=== PATIENT | female | born 1980 | race Caucasian/White ===

== ENCOUNTER 2017-01-29 09:12 | Emergency (ER) ==
[2017-01-29 09:25] VITALS: BP 167/111; TEMP 98.1; BMI 27.3
[2017-01-29] MEDS ORDERED: BACTROBAN TP STA (09:32)
[2017-01-29] MEDS ORDERED: TENIVAC IM ONE (09:33)
[2017-01-29] MEDS ORDERED: ANCEF IM STA (09:33)
--- NOTE | 2017-01-29 09:46 | ED.PDOC ---
General ED Provider: Dr. EPHRAIM AGUILAR-ER Chief Complaint: Bite Stated Complaint: was bitten by a dog last nite--caused lac on the thumb-- Time Seen by Physician: 09:15 Mode of Arrival: Walk-In Information Source: Patient Exam Limitations: No limitations Primary Care Provider: EPHRAIM AGUILAR Nursing and Triage Documentation Reviewed and Agree: Yes Skin Complaint Exam - Laceration/Abrasion/Hand Complaint/Exam Location of Injury: Right, Digit #1 Mechanism of Injury: Laceration, Puncture Onset/Duration: over [id number] agao Symptoms Are: Still present Initial Severity: Mild Current Severity: Mild Aggravating: Movement Alleviating: Compression Associated Signs and Symptoms: Denies: Fever, Chills, Erythema, Numbness, Tingling Differential Diagnoses: Bite Injury Review of Systems - Review Of Systems Constitutional: Reports: No symptoms Eyes: Reports: No symptoms Ears, Nose, Mouth, Throat: Reports: No symptoms Respiratory: Reports: No symptoms Cardiac: Reports: No symptoms GI: Reports: No symptoms : Reports: No symptoms Musculoskeletal: Reports: No symptoms Skin: Reports: Other Neurological: Reports: No symptoms Endocrine: Reports: No symptoms Hematologic/Lymphatic: Reports: No symptoms All Other Systems: Reviewed and Negative Past Medical History - Past Medical History Endocrine: Reports: Unknown Cardiovascular: Reports: Hypertension Respiratory: Reports: Other Hematological: Reports: None Gastrointestinal: Reports: None Genitourinary: Reports: None Neuro/Psych: Reports: None Musculoskeletal: Reports: None Cancer: Reports: None Last Menstrual Period: 2 weeks ago - Surgical History General Surgical History: Reports: Unknown - Family History Family History: Reports: Unknown - Social History Smoking Status: Current some day smoker Hx Substance Use: No Alcohol Screening: Occasionally Lives: With family - Immunizations Tetanus Shot up to Date: Yes (3 yrs) Physical Exam - Physical Exam Appearance: Well-appearing, No pain distress, Well-nourished Pain Distress: Mild Eyes: CHRISTOPHER, EOMI, Conjunctiva clear ENT: Ears normal, Nose normal, Oropharynx normal Neck: Supple Respiratory: Airway patent, Breath sounds clear, Breath sounds equal, Respirations nonlabored Cardiovascular: RRR, Pulses normal, No rub, No murmur GI/: Soft, Nontender, No masses, Bowel sounds normal, No Organomegaly Musculoskeletal: Normal strength, ROM intact, No edema, No calf tenderness Skin: Warm Neurological: Sensation intact Psychiatric: Affect appropriate, Anxious Interpretation - Radiology Interpretation Radiology Interpretation By: ED Physician Radiology Results: Negative Critical Care Note - Critical Care Note Total Time (mins): 0 Course - Course Orders, Labs, Meds: Orders Category Date Time Status Wound care [ED WOUND CARE] .ONCE EMERGENCY 01/29/17 09:32 Active Cefazolin Sodium [Ancef] MEDS 01/29/17 09:33 Discontinued 1 gm IM ONCE STA Mupirocin [Bactroban] MEDS 01/29/17 09:32 Discontinued 1 applic TP ONCE STA Tetanus and Diphtheria Tox/Pf [Tenivac] MEDS 01/29/17 09:33 Discontinued 0.5 ml IM .ONCE ONE THUMB, RIGHT Stat RADS 01/29/17 09:32 Ordered Medications Discontinued Medications Generic Name Dose Route Start Last Admin Trade Name Freq PRN Reason Stop Dose Admin Cefazolin Sodium 1 gm 01/29/17 09:33 Ancef IM 01/29/17 09:34 ONCE STA Mupirocin 1 applic 01/29/17 09:32 Bactroban TP 01/29/17 09:33 ONCE STA Tetanus/Diphtheria Toxoids Adsorbed 0.5 ml 01/29/17 09:33 Tenivac IM 01/29/17 09:34 .ONCE ONE Vital Signs: Temp Pulse Resp BP Pulse Ox 01/29/17 09:12 98.1 F 111 H 20 167/111 H 96 Departure - Departure Time of Disposition: 09:46 Disposition: HOME SELF-CARE Discharge Problem: Dog bite Qualifiers: Encounter type: initial encounter Qualifier Code: (W54.0XXA) Bitten by dog, initial encounter Instructions: Animal Bite (ED) Condition: Good Pt referred to PMD for follow-up: Yes Additional Instructions: augmentin 875mg bid x 5 days--wash wound with soap and water only and cover wtih bactroban onitment till healed--call me if any fever or red streaking-- toradol 10mg qid prn pain #16... Allergies/Adverse Reactions: Allergies No Known Allergies Allergy (Unverified 01/29/17 09:20) Home Medications: Ambulatory Orders Bumetanide 1 mg PO DAILY 01/29/17 Metoprolol Succinate [Toprol Xl] 25 mg PO DAILY 01/29/17 Disposition Discussed With: Patient
--- NOTE | 2017-01-29 10:03 | DI ---
Exam: Three x-rays of the right thumb. Comparison: None available. Reason for exam: Trauma. FINDINGS: No acute fracture or dislocation. The cortical alignment as well maintained. No unexpla ined calcific soft tissue densities or radiopaque retained foreign bodies. Impression: No acute fracture or dislocation is seen in the right thumb.
== END 2017-01-29 10:25 | disposition home or self-care (01) ==
LOC: ED 09:12
DX: S61.051A Open bite of right thumb without damage to nail, initial encounter (principal); W54.0XXA Bitten by dog, initial encounter; F17.210 Nicotine dependence, cigarettes, uncomplicated; I10 Essential (primary) hypertension
CPT/HCPCS: 90471; 96372; 99283

== ENCOUNTER 2017-07-07 13:50 | Outpatient (CLI) ==
[2017-07-07 14:19] LABS: ANION GAP 18.4; BUN/CREATININE RATIO 9.87; CALCIUM 8.8 mg/dL (8.2-10.2); CREATININE 0.81 mg/dL (0.60-1.30)
[2017-07-07 14:39] LABS: POTASSIUM 2.4 mmol/L (3.5-5.10)
[2017-07-07 14:40] LABS: MAGNESIUM 0.9 mg/dL (1.7-2.2)
== END 2017-07-07 13:51 | disposition home or self-care (01) ==
LOC: LAB 13:50
PROVIDERS: ATTEND Family Medicine
DX: R25.2 Cramp and spasm (principal)
CPT/HCPCS: 36415; 80048; 83735